=== PATIENT | male | born 1985 | race Caucasian/White ===

== ENCOUNTER 2017-03-04 11:41 | Emergency (ER) | payer OTHER ==
[~2017-03-04] VITALS: Ht 177.8 cm; Wt 105.0 kg
[~2017-03-04 11:41] MED LIST: ADDE20XR PO; CLON.5 PO; DICY1TAB26 PO; FLUO-1 PO
[2017-03-04 11:44] VITALS: BP 126/72; PULSE 84; RESP 18; TEMP 98.2; O2SAT 97
[2017-03-04] MEDS ORDERED: SYNT25TA PO (11:53)
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
[2017-03-04] MEDS ORDERED: IBUP-232 PO (12:25)
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
== END 2017-03-04 13:54 | disposition home or self-care (01) ==
LOC: PHEFT 11:41
DX: S20.211A Contusion of right front wall of thorax, initial encounter (principal); E03.9 Hypothyroidism, unspecified; X58.XXXA Exposure to other specified factors, initial encounter; Y93.89 Activity, other specified; Y92.34 Swimming pool (public) as the place of occurrence of the external cause; Y99.8 Other external cause status
CPT/HCPCS: 71101; 94150; 99283

== ENCOUNTER 2017-07-02 18:32 | Emergency (ER) | payer OTHER ==
[~2017-07-02] VITALS: Ht 177.8 cm; Wt 107.0 kg
[~2017-07-02 18:32] MED LIST changes: -ADDE20XR PO; -CLON.5 PO; -DICY1TAB26 PO; -FLUO-1 PO; +IBUP-232 PO; +SYNT25TA PO
[2017-07-02 18:39] VITALS: BP 140/83; PULSE 96; RESP 16; TEMP 99.1; O2SAT 95
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
[2017-07-02] MEDS ORDERED: HYDR-3533 PO (18:55)
[2017-07-02] MEDS ORDERED: CYCLOBENZAPRINE HCL 10 MG TAB PO ONE (19:00)
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
[2017-07-02] MEDS ORDERED: NAPR500 PO (20:20)
[2017-07-02] MEDS ORDERED: CYCL1TAB29 PO (20:20)
== END 2017-07-02 20:37 | disposition home or self-care (01) ==
LOC: PHEFT 18:32
DX: S16.1XXA Strain of muscle, fascia and tendon at neck level, initial encounter (principal); R51 Headache; M54.5 Low back pain; Z79.899 Other long term (current) drug therapy; V49.40XA Driver injured in collision with unspecified motor vehicles in traffic accident, initial encounter; Y92.410 Unspecified street and highway as the place of occurrence of the external cause
CPT/HCPCS: 70450; 72100; 72125

== ENCOUNTER 2017-07-03 20:21 | Emergency (ER) | payer OTHER ==
[~2017-07-03 20:21] MED LIST changes: +CYCL1TAB29 PO; +HYDR-3533 PO; +NAPR500 PO
[2017-07-03 20:30] VITALS: BP 132/76; PULSE 86; RESP 20; TEMP 98.3
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
[2017-07-03 23:54] VITALS: BP 130/76
== END 2017-07-03 23:55 | disposition home or self-care (01) ==
LOC: PHED 20:21 → PHEFT 23:55
DX: F07.81 Postconcussional syndrome (principal)
CPT/HCPCS: 99282

== ENCOUNTER 2017-08-23 21:26 | Emergency (ER) | payer OTHER ==
[~2017-08-23] VITALS: Ht 177.8 cm; Wt 109.7 kg
[~2017-08-23 21:26] MED LIST changes: +CYCL10TA PO; -CYCL1TAB29 PO; -IBUP-232 PO; -SYNT25TA PO
[2017-08-23 21:41] VITALS: BP 143/74; PULSE 95; RESP 14; TEMP 98.4; O2SAT 96
[2017-08-23 21:48] VITALS: BP 143/74; PULSE 95; RESP 16; TEMP 98.4; O2SAT 96
[2017-08-23] MEDS ORDERED: CARA1TAB6 PO (22:11)
[2017-08-23] MEDS ORDERED: DICY10 PO (22:11)
[2017-08-23] MEDS ORDERED: PROT40TA PO (22:11)
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
[2017-08-23 22:15] VITALS: BP 138/77; TEMP 98.3
[2017-08-23] MEDS ORDERED: ATROPINE/SCOPOLAM/HYOSCYAM/PB ELIXIR 10 ML CUP PO ONE (22:15)
[2017-08-23] MEDS ORDERED: ALUMINUM/MAGNESIUM/SIMETH 30 ML CUP PO ONE (22:15)
[2017-08-23] MEDS ORDERED: PANTOPRAZOLE SOD 40 MG DELAYED RELEASE TAB PO ONE (22:15)
== END 2017-08-23 22:16 | disposition home or self-care (01) ==
LOC: PHED 21:26
DX: K29.00 Acute gastritis without bleeding (principal)
CPT/HCPCS: 99284

== ENCOUNTER 2017-10-24 21:53 | Emergency (ER) | payer OTHER ==
[~2017-10-24] VITALS: Ht 177.8 cm; Wt 110.0 kg
[~2017-10-24 21:53] MED LIST changes: +CARA1TAB6 PO; +DICY10 PO; +PROT40TA PO
[2017-10-24 21:55] VITALS: BP 111/68; PULSE 112; RESP 20; TEMP 97.4; O2SAT 95
[2017-10-24 22:36] VITALS: BP 111/68; PULSE 112; RESP 20; TEMP 97.4; O2SAT 95
[2017-10-24] MEDS ORDERED: HYDR-3366 PO (23:19)
[2017-10-24] MEDS ORDERED: SENN8.6T36 PO (23:19)
[2017-10-24] MEDS ORDERED: CEPH500C PO (23:19)
[2017-10-24] MEDS ORDERED: TRAM50TA PO (23:19)
--- NOTE | 2017-10-24 23:48 | PD ---
HPI Chief Complaint: Pain: Acute or Chronic Time Seen by Provider: 23:35 Travel History International Travel<30 days: No Contact w/Intl Traveler<30days: No Traveled to known affect area: No History of Present Illness HPI The patient is a 32-year-old male that had a cervical discectomy, C3-4, C4-5 yesterday. He states he is been taking his Kam[place] 10/325 every 6 hours for pain but is not helping. He has been on Kamiah for several months and is apparently developed a tolerance for this medication. His pain is sharp and a 10 over 10. He denies any nausea, vomiting or diarrhea. He denies any fever. PFSH Past Medical History ADD: Yes ADHD: Yes Depression: Yes Diminished Hearing: No Musculoskeletal: Yes (chronic back and bilat hand pain) Immunizations Current: Yes Thyroid Disease: Yes Influenza Vaccination: No Past Surgical History Tonsillectomy: Yes (2009) Other Surgery: Yes (Spinal fusion ) Social History Alcohol Use: No Tobacco Use: No Substance Use: No Allergies-Medications (Allergen,Severity, Reaction): Coded Allergies: No Known Allergies (Verified Adverse Reaction, Unknown, 10/24/17) Reported Meds & Prescriptions Reported Meds & Active Scripts Active Prochlorperazine Maleate 10 Mg Tab 10 Mg PO Q6H PRN Percocet (Oxycodone-Acetaminophen) 10-325 mg Tab 1 Tab PO Q4H PRN Flexeril (Cyclobenzaprine HCl) 10 Mg Tab 10 Mg PO Q8HR PRN Reported Senna-Tabs (Sennosides) 8.6 Mg Tab 8.6 Mg PO DAILY Cephalexin 500 Mg Cap 500 Mg PO Q12H [place] (Hydrocodone-Acetaminophen) 10-325 Mg Tab 1 Tab PO Q6H PRN Tramadol (Tramadol HCl) 50 Mg Tab 50 Mg PO Q6H PRN Review of Systems Except as stated in HPI: all other systems reviewed are Neg Physical Exam Narrative GENERAL: Well-nourished, well-developed patient. The patient is alert, oriented 3 in moderate to severe distress. His vital signs show heart rate of 112 and temperature 97.4 but are otherwise normal. SKIN: Focused skin assessment warm/dry. HEAD: Normocephalic. EYES: No scleral icterus. No injection or drainage. NECK: Supple, trachea midline. No JVD or lymphadenopathy. He has a hard cervical collar. CARDIOVASCULAR: Regular rate and rhythm without murmurs, gallops, or rubs. RESPIRATORY: Breath sounds equal bilaterally. No accessory muscle use. GASTROINTESTINAL: Abdomen soft, non-tender, nondistended. MUSCULOSKELETAL: No cyanosis, or edema. BACK: Nontender without obvious deformity. No CVA tenderness. NEUROLOGICAL: Awake and alert. Cranial nerves II through XII intact. Motor and sensory grossly within normal limits. Five out of 5 muscle strength in all muscle groups. Normal speech. 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 Data Data Last Documented VS Vital Signs Date Time Temp Pulse Resp B/P (MAP) Pulse Ox O2 Delivery O2 Flow Rate FiO2 10/24/17 22:36 97.4 112 20 111/68 (82) 95 Orders Orders Hydromorphone Pf Inj (Dilaudid Pf Inj) (10/25/17 00:00) Prochlorperazine Inj (Compazine Inj) (10/25/17 00:00) [facility] Medical Decision Making Medical Screen Exam Complete: Yes Emergency Medical Condition: Yes Medical Record Reviewed: Yes Differential Diagnosis Postoperative pain, drug seeking behavior-unlikely, infection of the surgical site-extremely unlikely Narrative Course It is now 1223 in the morning and the patient feels much better with a pain of only 2/10 and he wants to go home. He will be given a prescription for Percocet and prochlorperazine. He should follow-up with his neurosurgeon as soon as possible. Impression: Postoperative pain Diagnosis Primary Impression: Postoperative pain Additional Instructions: Follow-up with your neurosurgeon as soon as possible. Of course, do not drink alcohol or drive on the pain medications Med/Other Pt SpecificInfo: Prescription(s) given Scripts Prochlorperazine Maleate (Prochlorperazine Maleate) 10 Mg Tab 10 MG PO Q6H Y for NAUSEA OR VOMITING, #30 TAB 0 Refills Prov: Edwin Landis MD 10/24/17 Oxycodone-Acetaminophen (Percocet) 10-325 mg Tab 1 TAB PO Q4H Y for PAIN, #30 TAB 0 Refills Prov: Edwin Landis MD 10/24/17 Disposition: 01 DISCHARGE HOME Condition: Stable Edwin Landis MD Oct 24, 2017 23:48
[2017-10-24] MEDS ORDERED: PERC10TA27 PO (23:51)
[2017-10-24] MEDS ORDERED: PROC10TA PO (23:51)
[2017-10-25] MEDS ORDERED: HYDROmorphone HCL PF 2 MG/ML VIAL IM ONE
[2017-10-25] MEDS ORDERED: PROCHLORPERAZINE INJ 10 MG/2 ML VIAL IM ONE
[2017-10-25 00:30] VITALS: BP 122/69
== END 2017-10-25 00:42 | disposition home or self-care (01) ==
LOC: PHED 21:53
DX: G89.18 Other acute postprocedural pain (principal); F32.9 Major depressive disorder, single episode, unspecified
CPT/HCPCS: 96372; 99283; J0780; J1170

== ENCOUNTER 2018-03-03 21:18 | Emergency (ER) | payer OTHER, MEDICAID ==
[~2018-03-03] VITALS: Ht 177.8 cm; Wt 113.6 kg
[~2018-03-03 21:18] MED LIST changes: -CARA1TAB6 PO; +CEPH500C PO; -DICY10 PO; +HYDR-3366 PO; -HYDR-3533 PO; -NAPR500 PO; +PERC10TA27 PO; +PROC10TA PO; -PROT40TA PO; +SENN8.6T36 PO; +TRAM50TA PO
[2018-03-03 21:31] VITALS: BP 158/91; PULSE 98; RESP 18; TEMP 98; O2SAT 96
[2018-03-03 22:00] VITALS: BP 165/96; PULSE 96; RESP 16; O2SAT 95
[2018-03-03 22:26] LABS: AUTOMATED NEUTROPHIL # 3.8 TH/MM3 (1.8-7.7); BASOPHIL % 0.3 % (0.0-2.0); EOSINOPHIL # 0.2 TH/MM3 (0-0.4); EOSINOPHIL % 2.6 % (0.0-4.0); HEMATOCRIT 40.9 % (39.0-51.0); LYMPH % 39.1 % (9.0-44.0); MEAN CELL VOLUME 89.1 FL (80.0-100.0); MEAN CORPUSCULAR HEMOGLOBIN 30.5 PG (27.0-34.0); MEAN CORPUSCULAR HGB CONC 34.2 % (32.0-36.0); MEAN PLATELET VOLUME 7.6 FL (7.0-11.0); MONO % 9.8 % (0.0-8.0); MONOCYTE # 0.8 TH/MM3 (0-0.9); NEUT % 48.2 % (16.0-70.0); PLATELET COUNT 246 TH/MM3 (150-450); RED BLOOD COUNT 4.59 MIL/MM3 (4.50-5.90); RED CELL DISTRIBUTION WIDTH 12.5 % (11.6-17.2); WHITE BLOOD COUNT 7.8 TH/MM3 (4.0-11.0)
[2018-03-03 22:33] LABS: CHLORIDE 106 MEQ/L (98-107); SODIUM (NA) 140 MEQ/L (136-145)
[2018-03-03 22:36] LABS: CALCIUM 8.7 MG/DL (8.5-10.1)
[2018-03-03 22:37] LABS: ALBUMIN 3.8 GM/DL (3.4-5.0); BICARBONATE 28.7 MEQ/L (21.0-32.0); BLOOD UREA NITROGEN 17 MG/DL (7-18); GLUCOSE,RANDOM 112 MG/DL (74-106)
[2018-03-03 22:40] LABS: ALT (GPT) 97 U/L (12-78); AST (GOT) 46 U/L (15-37); CREATININE 0.81 MG/DL (0.60-1.30); GLOMERULAR FILTRATION RATE 111 ML/MIN (>89)
[2018-03-03 22:42] LABS: TOTAL BILIRUBIN ADULT 0.3 MG/DL (0.2-1.0); TOTAL PROTEIN 6.8 GM/DL (6.4-8.2)
[2018-03-03 22:43] LABS: ALKALINE PHOSPHATASE 68 U/L (45-117)
[2018-03-03 23:00] VITALS: BP 151/78; PULSE 87; RESP 16; O2SAT 96
[2018-03-03] MEDS ORDERED: AZIT500T2 PO (23:06)
--- NOTE | 2018-03-03 23:07 | PD ---
HPI Chief Complaint: GI Complaint Time Seen by Provider: 21:39 Travel History International Travel<30 days: No Contact w/Intl Traveler<30days: [place] Traveled to: [place] [facility] ON [address] WHICH STOPPED IN [facility]. Traveled to known affect area: No History of Present Illness HPI This is a 33-year-old male who presents to the emergency department with 4 days of rectal pain and blood from his rectum, constant, moderate severity reporting that he has bright red blood filling the toilet. He denies any fevers or chills. He has a history of a hiatal hernia and reports that he also has had some upper abdominal pain but thought this might be unrelated. He did recently return from a cruise to [place] in [place]. He follows with a GI doctor and had a colonoscopy and endoscopy 5 years ago. [facility] Past Medical History ADD: Yes ADHD: Yes Depression: Yes Diminished Hearing: No Musculoskeletal: Yes (chronic back pain) Immunizations Current: Yes Thyroid Disease: Yes Influenza Vaccination: No Past Surgical History Tonsillectomy: Yes (2009) Other Surgery: Yes (CERVICAL DISC REPLACED) Social History Alcohol Use: No Tobacco Use: No Substance Use: No Allergies-Medications (Allergen,Severity, Reaction): Coded Allergies: No Known Allergies (Verified Adverse Reaction, Unknown, 03/03/18) Reported Meds & Prescriptions Reported Meds & Active Scripts Active Flexeril (Cyclobenzaprine HCl) 10 Mg Tab 10 Mg PO Q8HR PRN Reported Senna-Tabs (Sennosides) 8.6 Mg Tab 8.6 Mg PO DAILY [place] (Hydrocodone-Acetaminophen) 10-325 Mg Tab 1 Tab PO Q6H PRN Review of Systems Except as stated in HPI: all other systems reviewed are Neg Physical Exam Narrative GENERAL:Well appearing, no acute distress SKIN: Focused skin assessment warm and dry. HEAD: Atraumatic. Normocephalic. EYES: Pupils equal and round. No injection or drainage. ENT: Moist mucous membranes NECK: Trachea midline. CARDIOVASCULAR: Regular rate and rhythm. No murmur appreciated. RESPIRATORY: Clear to auscultation. Breath sounds equal bilaterally. GASTROINTESTINAL: Abdomen soft, mildly tender to palpation in the epigastrium with no rebound or guarding. Some ulceration around the rectum with no obvious hemorrhoids or blood MUSCULOSKELETAL: No obvious deformities. NEUROLOGICAL: Awake and alert. No obvious cranial nerve deficits. Moving all extremities. PSYCHIATRIC: Appropriate mood and affect; insight and judgment normal. Data Data Last Documented VS Vital Signs Date Time Temp Pulse Resp B/P (MAP) Pulse Ox O2 Delivery O2 Flow Rate FiO2 03/03/18 22:00 96 16 165/96 (119) 95 Room Air 03/03/18 21:31 98.0 Orders Orders Complete Blood Count With Diff (03/03/18 21:41) Comprehensive Metabolic Panel (03/03/18 21:41) Labs Laboratory Tests Test 03/03/18 22:15 White Blood Count 7.8 TH/MM3 Red Blood Count 4.59 MIL/MM3 Hemoglobin 14.0 GM/DL Hematocrit 40.9 % Mean Corpuscular Volume 89.1 FL Mean Corpuscular Hemoglobin 30.5 PG Mean Corpuscular Hemoglobin Concent 34.2 % Red Cell Distribution Width 12.5 % Platelet Count 246 TH/MM3 Mean Platelet Volume 7.6 FL Neutrophils (%) (Auto) 48.2 % Lymphocytes (%) (Auto) 39.1 % Monocytes (%) (Auto) 9.8 % Eosinophils (%) (Auto) 2.6 % Basophils (%) (Auto) 0.3 % Neutrophils # (Auto) 3.8 TH/MM3 Lymphocytes # (Auto) 3.0 TH/MM3 Monocytes # (Auto) 0.8 TH/MM3 Eosinophils # (Auto) 0.2 TH/MM3 Basophils # (Auto) 0.0 TH/MM3 CBC Comment DIFF FINAL Differential Comment Blood Urea Nitrogen 17 MG/DL Creatinine 0.81 MG/DL Random Glucose 112 MG/DL Total Protein 6.8 GM/DL Albumin 3.8 GM/DL Calcium Level 8.7 MG/DL Alkaline Phosphatase 68 U/L Aspartate Amino Transf (AST/SGOT) 46 U/L Alanine Aminotransferase (ALT/SGPT) 97 U/L Total Bilirubin 0.3 MG/DL Sodium Level 140 MEQ/L Potassium Level 3.8 MEQ/L Chloride Level 106 MEQ/L Carbon Dioxide Level 28.7 MEQ/L Anion Gap 5 MEQ/L Estimat Glomerular Filtration Rate 111 ML/MIN [facility] Medical Decision Making Medical Screen Exam Complete: Yes Emergency Medical Condition: Yes Differential Diagnosis Traveler's diarrhea, colitis, hemorrhoids, ulcer Narrative Course This is a 33-year-old male who presents to the emergency department with blood in his stool following traveling to [facility] in [facility]. He is nontoxic appearing with no fever. Labs are reassuring with a normal hemoglobin. He has some ulcerations around his rectum which I suspect are diarrhea related. I suspect the patient has traveler's diarrhea. 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 Diagnosis Primary Impression: Bright red blood per rectum Patient Instructions: General Instructions Additional Instructions: If you develop severe or worsening abdominal pain, fever>100.4, persistent vomiting or inability to eat or drink return to the emergency department immediately. If you develop lightheadedness or dizziness or your bleeding is increased return to the emergency department. 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 Med/Other Pt SpecificInfo: Prescription(s) given Scripts Azithromycin (Azithromycin) 500 Mg Tab 500 MG PO DAILY for Infection, #3 TAB 0 Refills Prov: Alicia Pérez MD 03/03/18 Disposition: 01 DISCHARGE HOME Condition: Stable Alicia Pérez MD Mar 03, 2018 23:07
== END 2018-03-03 23:29 | disposition home or self-care (01) ==
LOC: PHED 21:18
DX: K62.5 Hemorrhage of anus and rectum (principal); K62.89 Other specified diseases of anus and rectum; R10.10 Upper abdominal pain, unspecified
CPT/HCPCS: 80053; 85025; 99283